=== PATIENT | male | born 1965 | race Caucasian/White ===

== ENCOUNTER 2023-05-20 17:33 | Inpatient (IN) | payer OTHER ==
[2023-05-20 19:30] VITALS: BMI 30.7
[2023-05-20] MEDS ORDERED: POLYETHYLENE GLYCOL (HEALTHYLAX) 3350 17 GM PACKET PO PRN (21:26)
[2023-05-20] MEDS ORDERED: NALOXONE HCL (KLOXXADO) 8 MG SPRAY NS PRN (21:26)
[2023-05-20] MEDS ORDERED: DICYCLOMINE HCL 10 MG CAPSULE PO PRN (21:26)
[2023-05-20] MEDS ORDERED: BISMUTH SUBSALICYLATE 524 MG/30 ML PO PRN (21:26)
[2023-05-20] MEDS ORDERED: MAGNESIUM HYDROX 2400MG/30ML ORAL SUSPENSION 30 ML CUP PO PRN (21:26)
[2023-05-20] MEDS ORDERED: guaiFENesin 600 MG TABLET.ER (FP) PO PRN (21:26)
[2023-05-20] MEDS ORDERED: LOPERAMIDE HCL 2 MG CAPSULE PO PRN (21:26)
[2023-05-20] MEDS ORDERED: IBUPROFEN 400 MG TABLET (FP) PO PRN (21:26)
[2023-05-20] MEDS ORDERED: chlordiazePOXIDE HCL 25 MG CAPSULE PO PRN (21:26)
[2023-05-20] MEDS ORDERED: NALOXONE HCL 0.4 MG/ML VIAL IM PRN (21:26)
[2023-05-20] MEDS ORDERED: NICOTINE POLACRILEX 4 MG GUM BUC PRN (21:26)
[2023-05-20] MEDS ORDERED: BENZONATATE 200 MG CAPSULE PO PRN (21:26)
[2023-05-20] MEDS ORDERED: BENZOCAINE/MENTHOL (CHLORASEPTIC ) LOZENGE MM PRN (21:26)
[2023-05-20] MEDS ORDERED: methaDONE HCL 10 MG TABLET (FOR DETOX USE ONLY) PO ONE (21:26)
[2023-05-20] MEDS ORDERED: MAG HYDROX/AL HYDROX/SIMETH 30 ML UNIT-DOSE CUP PO PRN (21:26)
[2023-05-20] MEDS ORDERED: chlordiazePOXIDE HCL 25 MG CAPSULE ONE (22:04)
[2023-05-20] MEDS ORDERED: methaDONE HCL 10 MG TABLET (FOR DETOX USE ONLY) ONE (22:04)
[2023-05-20] MEDS: chlordiazePOXIDE HCL 25 MG CAPSULE PO SCH (22:07)
[2023-05-20] MEDS: THIAMINE HCL 100 MG TABLET (FP) PO SCH (23:56)
[2023-05-20] MEDS: MELATONIN 5 MG TABLETS PO SCH (23:57)
[2023-05-20] MEDS: cloNIDine HCL 0.1 MG TABLET PO PRN (23:58)
[2023-05-21] MEDS: hydrOXYzine PAMOATE 25 MG CAPSULE (FP) PO PRN ×3 (00:50→19:16)
[2023-05-21] MEDS: chlordiazePOXIDE HCL 25 MG CAPSULE PO SCH ×2 (04:23→09:59)
[2023-05-21] MEDS: cloNIDine HCL 0.1 MG TABLET PO PRN ×3 (09:58→22:15)
[2023-05-21] MEDS: NICOTINE 14 MG/24 HOURS TOPICAL PATCH TD SCH (10:43)
[2023-05-21] MEDS: PRENATAL VITAMINS W/ FOLIC ACID TABLET (FP) PO SCH (10:44)
[2023-05-21 11:05] LABS: PH,URINE 8.5 (5.0-8.0); URINE APPEARANCE CLEAR; URINE BILIRUBIN NEGATIVE (NEGATIVE); URINE COLOR YELLOW; URINE GLUCOSE (UA) NEGATIVE (NEGATIVE); URINE KETONE NEGATIVE (NEGATIVE); URINE LEUK ESTERASE NEGATIVE (NEGATIVE); URINE NITRITE NEGATIVE (NEGATIVE); URINE PROTEIN NEGATIVE (NEGATIVE)
[2023-05-21] MEDS: IBUPROFEN 600 MG TABLET (FP) PO PRN ×2 (11:35→22:15)
[2023-05-21] MEDS: METHOCARBAMOL 500 MG TABLET PO PRN ×2 (11:36→19:16)
[2023-05-21] MEDS ORDERED: methaDONE HCL 10 MG TABLET (FOR DETOX USE ONLY) PO ONE (13:56)
[2023-05-21] MEDS ORDERED: cloNIDine HCL 0.1 MG TABLET PO PRN (14:04)
[2023-05-21] MEDS ORDERED: methaDONE HCL 10 MG TABLET PO ONE (15:30)
[2023-05-21] MEDS: diazePAM 5 MG TABLET PO SCH ×2 (16:44→22:56)
[2023-05-21] MEDS: diazePAM 5 MG TABLET PO PRN (20:10)
[2023-05-21] MEDS: MELATONIN 5 MG TABLETS PO SCH (22:15)
[2023-05-21] MEDS: THIAMINE HCL 100 MG TABLET (FP) PO SCH (22:15)
[2023-05-22] MEDS: diazePAM 5 MG TABLET PO PRN ×2 (03:16→18:59)
[2023-05-22] MEDS ORDERED: chlordiazePOXIDE HCL 25 MG CAPSULE PO SCH (05:00)
[2023-05-22] MEDS: diazePAM 5 MG TABLET PO SCH ×4 (05:39→22:08)
[2023-05-22] MEDS ORDERED: methaDONE HCL 10 MG TABLET (FOR DETOX USE ONLY) PO ONE ×2 (10:00)
[2023-05-22] MEDS: NICOTINE 14 MG/24 HOURS TOPICAL PATCH TD SCH (10:06)
[2023-05-22] MEDS: PRENATAL VITAMINS W/ FOLIC ACID TABLET (FP) PO SCH (10:06)
[2023-05-22] MEDS: METHOCARBAMOL 500 MG TABLET PO PRN ×2 (11:06→22:54)
[2023-05-22] MEDS: ONDANSETRON *ODT* 4 MG TABLET SL PRN ×2 (11:06→22:37)
[2023-05-22] MEDS: ACETAMINOPHEN 325 MG TABLET (FP) PO PRN ×2 (11:58→20:07)
[2023-05-22] MEDS ORDERED: TRIMETHOBENZAMIDE HCL 200MG/2ML INJ IM ONE (13:57)
[2023-05-22] MEDS: hydrOXYzine PAMOATE 50 MG CAPSULE (FP) PO PRN (14:15)
[2023-05-22] MEDS: cloNIDine HCL 0.1 MG TABLET PO PRN ×2 (16:47→22:08)
[2023-05-22] MEDS: THIAMINE HCL 100 MG TABLET (FP) PO SCH (22:08)
[2023-05-22] MEDS: MELATONIN 5 MG TABLETS PO SCH (22:08)
[2023-05-23] MEDS ORDERED: chlordiazePOXIDE HCL 10 MG CAPSULE PO PRN
[2023-05-23] MEDS: hydrOXYzine PAMOATE 50 MG CAPSULE (FP) PO PRN ×2 (00:32→09:15)
[2023-05-23] MEDS: IBUPROFEN 600 MG TABLET (FP) PO PRN (00:32)
[2023-05-23] MEDS ORDERED: chlordiazePOXIDE HCL 10 MG CAPSULE PO SCH (05:00)
[2023-05-23] MEDS: diazePAM 5 MG TABLET PO SCH ×2 (05:30→13:10)
[2023-05-23 09:07] VITALS: BP 130/75; PULSE 90; RESP 16; TEMP 97.7
[2023-05-23] MEDS: NICOTINE 14 MG/24 HOURS TOPICAL PATCH TD SCH (09:15)
[2023-05-23] MEDS: METHOCARBAMOL 500 MG TABLET PO PRN (09:15)
[2023-05-23] MEDS: PRENATAL VITAMINS W/ FOLIC ACID TABLET (FP) PO SCH (09:15)
[2023-05-23] MEDS: diazePAM 5 MG TABLET PO PRN (09:16)
[2023-05-24] MEDS ORDERED: chlordiazePOXIDE HCL 10 MG CAPSULE PO SCH (05:00)
[2023-05-24] MEDS ORDERED: diazePAM 5 MG TABLET PO SCH (06:00)
[2023-05-24] MEDS ORDERED: methaDONE HCL 10 MG TABLET (FOR DETOX USE ONLY) PO ONE ×2 (10:00)
[2023-05-25] MEDS ORDERED: chlordiazePOXIDE HCL 10 MG CAPSULE PO ONE (05:00)
[2023-05-25] MEDS ORDERED: diazePAM 5 MG TABLET PO ONE (06:00)
[2023-05-26] MEDS ORDERED: methaDONE HCL 10 MG TABLET (FOR DETOX USE ONLY) PO ONE (10:00)
== END 2023-05-23 11:46 | disposition left against medical advice (07) | DRG 770 ==
LOC: YASAS 17:33 → Y3N 23:21
PROVIDERS: ADMIT Allergy & Immunology; ATTEND Surgery
PROC: HZ2ZZZZ Detoxification Services for Substance Abuse Treatment (ICD-10-PCS; principal; 2023-05-20)
DX: F11.23 Opioid dependence with withdrawal (principal); F10.230 Alcohol dependence with withdrawal, uncomplicated; F13.20 Sedative, hypnotic or anxiolytic dependence, uncomplicated; E78.5 Hyperlipidemia, unspecified; R76.11 Nonspecific reaction to tuberculin skin test without active tuberculosis; Z72.0 Tobacco use; Z86.19 Personal history of other infectious and parasitic diseases; Z28.310 Unvaccinated for COVID-19; Z28.9 Immunization not carried out for unspecified reason; Z88.8 Allergy status to other drugs, medicaments and biological substances
CPT/HCPCS: 81003; 87635; 93005; 93010; Q0162